=== PATIENT | female | born 1985 | race Caucasian/White ===

== ENCOUNTER 2023-08-30 05:46 | Day surgery (SDC) | payer OTHER ==
[~2023-08-30 05:46] MED LIST: CIPRO500 MG PO; PYRIDIUM200 MG PO; ZOFRAN4 MG PO
[2023-08-30] MEDS ORDERED: MIDAZOLAM HCL 2 MG/2 ML VIAL IV ONE (08:00)
[2023-08-30] MEDS ORDERED: fentaNYL CITRATE 50 MCG/ML AMPUL IV PUSH ONE (08:00)
== END 2023-08-30 09:40 | disposition home or self-care (01) ==
LOC: AMB-ENDOS 05:46
PROVIDERS: ATTEND Colon & Rectal Surgery
DX: K62.5 Hemorrhage of anus and rectum (principal)